=== PATIENT | male | born 1985 | race Caucasian/White ===

== ENCOUNTER 2021-07-29 08:23 | Emergency (ER) | payer BC, OTHER ==
[~2021-07-29] VITALS: Ht 167.6 cm; Wt 99.8 kg
[2021-07-29 08:26] VITALS: BP 172/96
[2021-07-29] MEDS ORDERED: KETOROLAC TROMETH 60MG/2ML VIAL IM ONE (09:15)
[2021-07-29] MEDS ORDERED: IBUP800T27 PO (10:05)
[2021-07-29] MEDS ORDERED: DOXY-286 PO (10:05)
== END 2021-07-29 10:11 | disposition home or self-care (01) ==
LOC: ER 08:23
DX: S39.013A Strain of muscle, fascia and tendon of pelvis, initial encounter (principal); K42.9 Umbilical hernia without obstruction or gangrene; N45.1 Epididymitis; X58.XXXA Exposure to other specified factors, initial encounter; Y93.89 Activity, other specified; Y92.89 Other specified places as the place of occurrence of the external cause; Y99.8 Other external cause status
CPT/HCPCS: 74176; 76870; 81002; 96372; 99284; J1885